=== PATIENT | male | born 1945 | race Caucasian/White ===

== ENCOUNTER 2017-06-04 19:14 | Emergency (ER) | payer OTHER, MEDICARE ==
[~2017-06-04] VITALS: Ht 182.9 cm; Wt 82.6 kg
[~2017-06-04 19:14] MED LIST: HYDROCHLOROTH12.5 M1 PO; LIPITOR 20 MG T20 M1 PO; VASOTEC10 MG PO
[2017-06-04 19:50] LABS: HEMATOCRIT 40.1 % (42.0-52.0); HEMOGLOBIN 14.2 gm/dL (14.0-18.0); MANUAL DIFF YES; MCH 31.2 pg (26.0-34.0); MCHC 35.3 g/dL (28.0-37.0); MCV 88.4 fL (80.0-100.0); PLATELET COUNT 117 thou/uL (150-400); RBC 4.54 mil/uL (4.50-6.00); RDW 13.2 % (10.5-14.5); WBC 5.3 thou/uL (4.0-11.0)
[2017-06-04 19:58] LABS: CALCIUM 8.6 mg/dL (8.5-10.1); CREATININE 0.9 mg/dL (0.7-1.3)
[2017-06-04 20:03] LABS: ALBUMIN 3.8 g/dL (3.4-5.0); DIRECT BILIRUBIN 0.1 mg/dL (<0.1-0.3); TOTAL BILIRUBIN 0.6 mg/dL (<0.1-1.0); TOTAL PROTEIN 7.2 g/dL (6.4-8.2)
[2017-06-04 20:41] LABS: ABSOLUTE NEUTROPHILS 4.1 thou/uL (1.4-8.2); ANISOCYTOSIS SLIGHT; ATYPICAL LYMPHS 2 %; HYPOCHROMASIA SLIGHT; LARGE PLATELETS OCCASIONAL; TOTAL CELL COUNT 100
[2017-06-04 20:56] LABS: URINE BILIRUBIN NEGATIVE (Negative); URINE BLOOD 1+ (Negative); URINE COLOR YELLOW; URINE GLUCOSE-RANDOM* NEGATIVE (Negative); URINE KETONES NEGATIVE (Negative); URINE LEUKOCYTES-REFLEX NEGATIVE (Negative); URINE PROTEIN (DIPSTICK) NEGATIVE (Negative)
[2017-06-04 21:04] LABS: SQUAMOUS 0-3 Few /LPF (0-3)
[2017-06-04 21:05] LABS: CASTS None Seen /LPF (None Seen); CRYSTALS None Seen /LPF (None Seen); URINE RBC 0-2 Rare /HPF (0-2); URINE WBC-REFLEX None Seen /HPF (0-5)
== END 2017-06-04 21:56 | disposition home or self-care (01) ==
LOC: ER 19:14
PROVIDERS: Emergency Medicine
DX: B34.9 Viral infection, unspecified (principal); I10 Essential (primary) hypertension; E78.00 Pure hypercholesterolemia, unspecified; F10.99 Alcohol use, unspecified with unspecified alcohol-induced disorder; Z98.890 Other specified postprocedural states

== ENCOUNTER → 2017-07-12 | Outpatient (CLI) | payer OTHER, MEDICARE ==
[~2017-07-12] VITALS: Ht 182.9 cm; Wt 80.3 kg
[~2017-07-12] MED LIST changes: +DOXYCYCLINE HYC20 MG PO; +LISINOPRIL-HCT1 EAC1 PO; +MELATONIN5 M1 PO
--- NOTE | ~2017-07-12 | P ---
[facility] [place] [address] PROCEDURE REPORT Name: CHRISTIANO MILLER Room #: REG [facility]#: [id number] Admission: 07/12/17 Attend Phys: Fer Moreno Discharge: Date of : 47 Report #: [id number] THIS REPORT FOR: //name// CC: Fer Jones MD DATE OF SERVICE: 07/12/2017 PROCEDURE PERFORMED: Colonoscopy with polypectomies. HISTORY OF PRESENT ILLNESS: The patient is a 71-year-old male who has a history of colon polyps, presents today for routine followup. He denies any symptoms. No family history of colon cancer. DESCRIPTION OF PROCEDURE: The risks and benefits of the procedure were explained to the patient, those risks including but not limited to bleeding, perforation, the risk of sedation. He understood these risks and gave informed consent. Sedation was given using propofol per anesthesia. Next, a digital rectal exam was initially performed, which was normal. Next, using a standard Fujinon colonoscope, the scope was placed in the patient's anus and advanced under direct vision to the cecum. The overall prep was good. In the cecum, there were 2 polyps, the larger polyp was 6 mm in size and the smaller was 4, both removed by cold forceps. The ileocecal valve was normal. In the ascending colon, there was a 4 mm sessile polyp. This was also removed by cold forceps. In the transverse colon, 2 polyps were noted. The larger one was 8 mm, removed by snare cautery, the smaller one was 5 mm, also removed by snare cautery. Multiple diverticula were noted scattered throughout the transverse, descending, and sigmoid colon, no evidence of inflammation, otherwise normal. The rectal mucosa was normal. On retroflexion, no abnormalities were noted. The scope was then withdrawn and the procedure terminated. The patient tolerated the procedure well. IMPRESSION: 1. Multiple small polyps as described above. 2. Diverticulosis. 3. Otherwise, normal colonoscopy. RECOMMENDATIONS: 1. Await biopsy results. 2. Repeat colonoscopy in [address] [address] PROCEDURE REPORT Name: CHRISTIANO MILLER Room #: REG [facility] Jose#: [id number] Admission: 07/12/17 Attend Phys: Fer Moreno Discharge: Date of : 47 Report #: [id number] Thank you for allowing me to participate in his care. <ELECTRONICALLY SIGNED> By: Fer Hazel MD 07/12/17 1705 [id number] eFr Hazel MD /nt
--- NOTE | ~2017-07-12 | S ---
[facility] [place] [address] SURGICAL PATH RPT PROCEDURE Name: KHANG MILLER [facility] [id number] Admission: 07/12/17 Date of : 47 Discharge: Report #: [id number] Path Case #: [id number] PATHOLOGY REPORT COLLECTION DATE: 07/12/2017 RECEIVED DATE: 07/12/2017 SUBMITTING PHYS: Dr. Fer Hazel OTHER PHYS: Dr. Reza Jung SPECIMEN(S) RECEIVED: A.Cecal polyp x2 B.Ascending colon polyp C.Transverse colon polyp x2 * * * * * * * * * * * * FINAL DIAGNOSIS: A. Polyp x2, cecal polyp, endoscopic biopsy: - Multiple fragments showing tubular adenomas. - Negative for high-grade dysplasia in any of the fragments. B. Polyp, ascending colon polyp, endoscopic biopsy: - Tubular adenoma. - Negative for high-grade dysplasia. C. Polyps x2, transverse colon polyps, endoscopic biopsy: - Multiple fragments showing tubular adenoma. - Negative for high-grade dysplasia. (IUV:kaden; 07/13/2017) PATHOLOGIST: Regina Hernandez M.D. REPORT ELECTRONICALLY SIGNED BY: Regina Hernandez M.D. DATE/TIME: 07/13/2017 15:02 * * * * * * * * * * * * GROSS PATHOLOGY: A. Received in formalin labeled "Khang Miller, cecal polyp 2," are multiple (more than 10) segments of mann soft tissue measuring 1.5 x 0.6 x 0.3 cm in aggregate dimensions and ranging from 0.1 to 0.3 cm in maximum dimension. The specimen is submitted entirely in cassette A1. B. Received in formalin labeled "Khang Miller, ascending colon polyp," are two segments of mann soft tissue measuring 0.9 x 0.3 x 0.3 cm in aggregate dimensions and ranging from 0.4 to 0.5 cm in maximum dimension. The specimen is submitted entirely in cassette B1. C. Received in formalin labeled "Khang Miller, transverse colon polyps 2," is a 1.0 x 0.5 x 0.5 cm polypoid piece of mann soft tissue. The margin is inked and the tissue is sectioned perpendicular to the margin and submitted in its entirety in cassette [address] [address] SURGICAL PATH RPT PROCEDURE Name: KHANG MILLER [facility] [id number] Admission: 07/12/17 Date of : 47 Discharge: Report #: [id number] Path Case #: [id number] C1. (TSD; 07/12/2017) CLINICAL HISTORY: Pre-Op OP DX: Hx of polyps Post-OP DX: Colon polyps INITIAL CPT CODE(S): A; 15938 B; 83276 C; 08874 Professional services performed by [facility] at [address], [place] [address] Technical services performed by [facility] at [address] [place] [address] [address], [place] [address]. [facility] [address] [place] [address] PHONE: [phone] DIRECTOR: Josep Dang M.D. * * * END OF REPORT * * *
== END | disposition home or self-care (01) ==
LOC: GI 06:52
DX: Z09 Encounter for follow-up examination after completed treatment for conditions other than malignant neoplasm (principal); Z87.19 Personal history of other diseases of the digestive system; D12.0 Benign neoplasm of cecum; D12.2 Benign neoplasm of ascending colon; D12.3 Benign neoplasm of transverse colon; K57.30 Diverticulosis of large intestine without perforation or abscess without bleeding; Z87.891 Personal history of nicotine dependence; I10 Essential (primary) hypertension; E78.5 Hyperlipidemia, unspecified; Z98.890 Other specified postprocedural states
CPT/HCPCS: 62110; 62900

== ENCOUNTER → 2019-12-27 | Outpatient (CLI) | payer OTHER | LOC: CAT 07:40 | DX: Z13.6 Encounter for screening for cardiovascular disorders (principal); E78.00 Pure hypercholesterolemia, unspecified; I25.10 Atherosclerotic heart disease of native coronary artery without angina pectoris ==